=== PATIENT | female | born 1960 | race Caucasian/White ===

== ENCOUNTER 2019-11-05 12:50 | Emergency (ER) | payer SELFPAY ==
--- NOTE | 2019-11-05 12:53 | ED Physician Documentation ---
General Adult - HISTORIAN Historian: patient - HPI Stated Complaint: cough x 1 week Chief Complaint: Fever Onset: days ago (7) Timing: still present Severity: mild Further Comments: yes (She states about one week ago she started with nasal drainage, cough and now has fever x 1 week. She has tried OTC meds despite the fact she should not with hypertension. She has had sick contacts. No rash. She has mild shortness of air with increased coughing or moving) - ROS CONST: other (cough, congestion ) EYES/ENT: nasal drainage, nasal congestion. denies: sore throat CVS/RESP: cough GI/: none MS/SKIN/LYMPH: none NEURO/PSYCH: headache (sinus pain ) - PAST HX Past History: hypertension Immunizations: UTD Allergies/Adverse Reactions: Allergies Allergy/AdvReac Type Severity Reaction Status Date / Time lisinopril Allergy Severe Anaphylaxis Verified 11/05/19 13:13 Home Medications: Ambulatory Orders Medication Instructions Recorded Atenolol [Tenormin] 50 mg PO QD 05/17/14 Levothyroxine Sodium [Euthyrox] 100 mcg PO QDAY 11/05/19 Prazosin HCl [Minipress] 1 - 3 mg PO HS PRN 11/05/19 Simvastatin 20 mg PO HS 11/05/19 Venlafaxine HCl [Effexor Xr] 225 mg PO QDAY 11/05/19 - SOCIAL HX Smoking History: non-smoker Alcohol Use: none Drug Use: none - FAMILY HX Family History: No - VITAL SIGNS Vital Signs: Vital Signs Temp Pulse Resp BP Pulse Ox 145/94 05/17/14 19:45 - REVIEWED ASSESSMENTS Nursing Assessment Reviewed: Yes Vitals Reviewed: Yes General Adult Physical Exam - PHYSICAL EXAM GENERAL APPEARANCE: no distress EENT: eye inspection normal, no signs of dehydration, pharyngeal erythema, TM erythema (bilateal ears ) RESPIRATORY: no resp distress, chest non-tender, breath sounds normal CVS: reg rate & rhythm, heart sounds normal ABDOMEN: soft, non-tender BACK: normal inspection SKIN: warm/dry EXTREMITIES: non-tender NEURO: oriented X3 Discharge Clincal Impression: Bronchitis Referrals: Primary Doctor,No [Primary Care Provider] - 2 Days Comments: 1. Azithromycin (zpack) take as directed 2. Tessalon pearls 100 mg take 1 by mouth every 8 hours as needed for cough 3. Medrol dose pack - as directed 4. ProAir 90mcg - 2 puffs every 4 hours as needed for cough 5. Follow up with PCP in 2-4 days 6. Return to ER for any increased concerns Condition: Stable Disposition: 01 HOME, SELF-CARE Decision to Admit: NO Date of Decison to Admit: 11/05/19 Decision Time: 13:25
[2019-11-05 13:16] VITALS: BP 100/64
== END 2019-11-05 13:32 | disposition home or self-care (01) ==
LOC: ED 12:50
DX: J40 Bronchitis, not specified as acute or chronic (principal)
CPT/HCPCS: 99282; 99284